=== PATIENT | female | born 1995 | race Hispanic/Latino ===

== ENCOUNTER 2017-04-02 10:55 | Emergency (ER) | payer OTHER ==
[~2017-04-02] VITALS: Ht 157.5 cm; Wt 50.0 kg
[~2017-04-02 10:55] MED LIST: AMOXICILLIN500 MG PO; ANALGESIC; BACTRIM DS1 TAB PO; BENADRY2 EX; BENADRYL25 M1 PO; MACRODANTIN100 MG PO; MIRALAX3350 N1 PO; NO; ONDANSETRON4 MG PO; PEPCID20 MG PO; PRENATA3 PO; PRENATAL1 TA1 PO; ULTRAM50 M1 PO; ZOFRAN4 MG/TAB PO
[2017-04-02] MEDS ORDERED: MOTRIN800 MG PO (11:37)
[2017-04-02 11:45] VITALS: BP 118/64
== END 2017-04-02 11:45 | disposition home or self-care (01) | DRG 605 ==
LOC: ED 10:55
DX: S80.01XA Contusion of right knee, initial encounter (principal); S43.491A Other sprain of right shoulder joint, initial encounter; V49.50XA Passenger injured in collision with unspecified motor vehicles in traffic accident, initial encounter

== ENCOUNTER 2018-06-11 13:26 | Emergency (ER) | payer SELFPAY ==
[~2018-06-11] VITALS: Ht 157.5 cm; Wt 71.8 kg
[~2018-06-11 13:26] MED LIST changes: +MOTRIN800 MG PO
[2018-06-11 15:15] LABS: HEMATOCRIT 42.7 % (37.0-47.0); HEMOGLOBIN 14.2 g/dl (12.0-16.0); IMMATURE GRANULOCYTES 0.2 % (0.0-5.0); MEAN CELL VOLUME 86.8 fL CALC (80.0-100.0); MEAN CORPUSCULAR HGB 28.9 pG CALC (26.0-32.0); MEAN CORPUSCULAR HGB CONC 33.3 g/L CALC (32.0-36.0); NEUT# 5.42 thou/uL (2.00-7.15); RED BLOOD COUNT 4.92 mill/uL (4.20-5.60); RED CELL DISTRI WIDTH 13.7 % (11.5-15.5)
[2018-06-11 15:37] LABS: ALKALINE PHOSPHATASE 95 u/l (38-126); ANION GAP 11 (6-22 (CALC)); BILIRUBIN, TOTAL 0.3 mg/dL (0.0-1.4); BUN 9 mg/dL (7-17); BUN/CREATININE RATIO 16 (12-20 (CALC)); CARBON DIOXIDE 26 mmol/l (22-30); CHLORIDE 109 mmol/l (95-108); CREATININE 0.5 mg/dL (0.5-1.0); GFR > 60 ML/MIN (>=60 (CALC)); GFR FOR AFR.AMER. > 60 ML/MIN (>=60 (CALC)); LIPASE 68 u/l (23-300); POTASSIUM 4.1 mmol/l (3.5-5.1); SGOT/AST 18 u/l (14-36); SODIUM 141 mmol/l (137-146); TOTAL PROTEIN 7.3 g/dL (6.3-8.2)
[2018-06-11 15:54] LABS: BETA-HCG, QUANT(RESULT NUMBER) 1395 mIU/mL
[2018-06-11 18:11] VITALS: BP 113/70
== END 2018-06-11 18:22 | disposition home or self-care (01) | DRG 833 ==
LOC: ED 13:26
PROVIDERS: Family Medicine
DX: O26.899 Other specified pregnancy related conditions, unspecified trimester (principal); R10.33 Periumbilical pain; Z3A.00 Weeks of gestation of pregnancy not specified

== ENCOUNTER 2018-08-11 21:43 | Emergency (ER) | payer OTHER ==
[~2018-08-11] VITALS: Ht 157.5 cm; Wt 68.2 kg
[2018-08-11] MEDS ORDERED: PRENATA3 PO (22:01)
[2018-08-11] MEDS ORDERED: NAUSEA (22:02)
[2018-08-11 22:24] LABS: IMMATURE GRANULOCYTES 0.2 % (0.0-5.0); MEAN CELL VOLUME 84.5 fL CALC (80.0-100.0); MEAN CORPUSCULAR HGB 28.5 pG CALC (26.0-32.0); MEAN CORPUSCULAR HGB CONC 33.7 g/L CALC (32.0-36.0); NEUT# 3.55 thou/uL (2.00-7.15); RED BLOOD COUNT 4.25 mill/uL (4.20-5.60); RED CELL DISTRI WIDTH 13.6 % (11.5-15.5)
[2018-08-11 22:24] LABS: URINE BILIRUBIN - DIPSTICK NEGATIVE (NEGATIVE); URINE BLOOD DIPSTICK MODERATE (NEGATIVE); URINE COLOR YELLOW; URINE GLUCOSE - DIPSTICK NEGATIVE (NEGATIVE); URINE KETONE 15 mg/dL (NEGATIVE); URINE LEUK ESTERASE TRACE (NEGATIVE); URINE NITRITE - DIPSTICK NEGATIVE (Negative); URINE PH 5.5 (4.5-8.0); URINE PROTEIN - DIPSTICK NEGATIVE (NEG-TRACE); URINE SPECIFIC GRAVITY >=1.030; URINE UROBILINOGEN - DIPSTICK 0.2 E.U./dL (0.2)
[2018-08-11 22:26] LABS: HEMATOCRIT 35.9 % (37.0-47.0); HEMOGLOBIN 12.1 g/dl (12.0-16.0)
[2018-08-11 22:36] LABS: URINE MUCUS FEW hpf (NONE-FEW); URINE RBC 25-50 RBC/hpf (0-5); URINE SQUAMOUS EPITHELIAL CELL FEW EPI/hpf (0-FEW)
[2018-08-11 22:41] LABS: ALBUMIN 3.6 g/dL (3.2-5.0); ALKALINE PHOSPHATASE 87 u/l (38-126); ANION GAP 14 (6-22 (CALC)); BILIRUBIN, TOTAL 0.3 mg/dL (0.0-1.4); BUN 4 mg/dL (7-17); BUN/CREATININE RATIO 9 (12-20 (CALC)); CARBON DIOXIDE 23 mmol/l (22-30); CHLORIDE 104 mmol/l (95-108); CREATININE 0.4 mg/dL (0.5-1.0); GFR > 60 ML/MIN (>=60 (CALC)); GFR FOR AFR.AMER. > 60 ML/MIN (>=60 (CALC)); POTASSIUM 3.5 mmol/l (3.5-5.1); SGOT/AST 20 u/l (14-36); SODIUM 137 mmol/l (137-146); TOTAL PROTEIN 6.6 g/dL (6.3-8.2)
[2018-08-12 01:26] VITALS: BP 109/63
== END 2018-08-12 01:31 | disposition home or self-care (01) ==
LOC: ED 21:43
PROVIDERS: Emergency Medicine
DX: O26.891 Other specified pregnancy related conditions, first trimester (principal); Z3A.14 14 weeks gestation of pregnancy; R10.30 Lower abdominal pain, unspecified; R50.9 Fever, unspecified; R09.81 Nasal congestion; R09.89 Other specified symptoms and signs involving the circulatory and respiratory systems

== ENCOUNTER 2021-05-19 12:43 | Emergency (ER) | payer SELFPAY ==
[~2021-05-19 12:43] MED LIST changes: +NAUSEA
== END 2021-05-19 12:52 | disposition left against medical advice (07) | DRG 951 ==
LOC: ED 12:43 → LWOBS 12:52
DX: Z53.21 Procedure and treatment not carried out due to patient leaving prior to being seen by health care provider (principal)

== ENCOUNTER 2021-08-07 15:44 | Emergency (ER) | payer OTHER | END 2021-08-07 18:50 | disposition left against medical advice (07) | DRG 951 | LOC: ED 15:44 → LWOBS 18:49 | DX: Z53.21 Procedure and treatment not carried out due to patient leaving prior to being seen by health care provider (principal) ==